=== PATIENT | male | born 1940 | race African-American/Black ===

== ENCOUNTER → 2020-07-08 | Outpatient (CLI) | payer OTHER ==
[~2020-07-08] MED LIST: METFORMIN
== END ==
LOC: SJCVCIMAG 07-06 06:25
PROVIDERS: ATTEND Podiatrist Foot & Ankle Surgery
DX: I70.203 Unspecified atherosclerosis of native arteries of extremities, bilateral legs (principal); E78.00 Pure hypercholesterolemia, unspecified; Z72.0 Tobacco use

== ENCOUNTER → 2020-07-19 | Outpatient (CLI) | payer OTHER ==
[~2020-07-19] MED LIST changes: +ASA81BEC PO; +CARVEDILOL12.5 MG PO; +FLOMAX0.4 MG PO; +FUROSEMIDE 40 M40 MG PO; +LANTUS SUBQ; +SIMVASTATIN80 MG PO; +VALSARTAN-HCTZ1 EACH PO
== END ==
LOC: SJCVC 14:43
PROVIDERS: ATTEND Nuclear Medicine Nuclear Cardiology
DX: I73.9 Peripheral vascular disease, unspecified (principal); I12.9 Hypertensive chronic kidney disease with stage 1 through stage 4 chronic kidney disease, or unspecified chronic kidney disease; E11.22 Type 2 diabetes mellitus with diabetic chronic kidney disease; E78.00 Pure hypercholesterolemia, unspecified; N18.9 Chronic kidney disease, unspecified; I44.7 Left bundle-branch block, unspecified; Z79.4 Long term (current) use of insulin; Z72.0 Tobacco use

== ENCOUNTER → 2020-07-22 | Outpatient (CLI) | payer OTHER ==
[~2020-07-22] VITALS: Ht 172.7 cm; Wt 52.2 kg
[2020-07-22 07:10] VITALS: BP 156/86
[2020-07-22 07:32] LABS: HEMATOCRIT 43.3 % (42.0-52.0); HEMOGLOBIN 13.6 gm/dL (14.0-18.0); MCH 28.5 pg (26.0-34.0); MCHC 31.3 g/dL (28.0-37.0); RBC 4.76 mil/uL (4.50-6.00); RDW 15.3 % (10.5-14.5)
[2020-07-22 07:40] LABS: CALCIUM 9.9 mg/dL (8.5-10.1); CREATININE 2.1 mg/dL (0.7-1.3)
[2020-07-22 07:41] LABS: POTASSIUM 5.5 mmol/L (3.5-5.1)
== END | disposition home or self-care (01) ==
LOC: CATH 06:41
PROVIDERS: ATTEND Nuclear Medicine Nuclear Cardiology
DX: I70.238 Atherosclerosis of native arteries of right leg with ulceration of other part of lower leg (principal); I70.213 Atherosclerosis of native arteries of extremities with intermittent claudication, bilateral legs; L97.919 Non-pressure chronic ulcer of unspecified part of right lower leg with unspecified severity; I70.1 Atherosclerosis of renal artery; I70.8 Atherosclerosis of other arteries; I12.9 Hypertensive chronic kidney disease with stage 1 through stage 4 chronic kidney disease, or unspecified chronic kidney disease; E11.22 Type 2 diabetes mellitus with diabetic chronic kidney disease; N18.9 Chronic kidney disease, unspecified; I25.10 Atherosclerotic heart disease of native coronary artery without angina pectoris; F17.210 Nicotine dependence, cigarettes, uncomplicated; E78.00 Pure hypercholesterolemia, unspecified; Z98.890 Other specified postprocedural states; Z79.899 Other long term (current) drug therapy; Z90.49 Acquired absence of other specified parts of digestive tract

== ENCOUNTER → 2020-09-05 | Outpatient (CLI) | payer OTHER | LOC: SJCVCIMAG 08:14 | PROVIDERS: ATTEND Nuclear Medicine Nuclear Cardiology | DX: I65.23 Occlusion and stenosis of bilateral carotid arteries (principal); I70.201 Unspecified atherosclerosis of native arteries of extremities, right leg; I77.9 Disorder of arteries and arterioles, unspecified; F17.200 Nicotine dependence, unspecified, uncomplicated; Z95.828 Presence of other vascular implants and grafts ==

== ENCOUNTER 2020-10-25 00:30 | Emergency (ER) | payer OTHER ==
[~2020-10-25] VITALS: Ht 175.3 cm; Wt 70.3 kg
[2020-10-25 00:58] LABS: ABSOLUTE NEUTROPHILS 6.5 thou/uL (1.4-8.2); BASOPHILS 0.3 % (0.0-2.0); EOSINOPHILS 0.6 % (0.0-3.0); HEMATOCRIT 45.1 % (42.0-52.0); HEMOGLOBIN 14.8 gm/dL (14.0-18.0); LYMPHOCYTES 18.6 % (24.0-44.0); MCH 29.4 pg (26.0-34.0); MCHC 32.9 g/dL (28.0-37.0); MCV 89.4 fL (80.0-100.0); MONOCYTES 12.1 % (1.0-8.0); PLATELET COUNT 470 thou/uL (150-400); POLYS 68.4 % (36.0-66.0); RBC 5.04 mil/uL (4.50-6.00); RDW 15.6 % (10.5-14.5); WBC 9.5 thou/uL (4.0-11.0)
[2020-10-25 01:02] LABS: CALCIUM 9.9 mg/dL (8.5-10.1); CREATININE 1.7 mg/dL (0.7-1.3); POTASSIUM 4.8 mmol/L (3.5-5.1)
[2020-10-25 01:08] LABS: ALBUMIN 3.9 g/dL (3.4-5.0); TOTAL BILIRUBIN 0.7 mg/dL (0.2-1.0); TOTAL PROTEIN 7.5 g/dL (6.4-8.2)
[2020-10-25 04:05] LABS: URINE BILIRUBIN NEGATIVE (Negative); URINE BLOOD NEGATIVE (Negative); URINE CLARITY CLEAR; URINE COLOR YELLOW; URINE GLUCOSE-RANDOM* TRACE (Negative); URINE KETONES NEGATIVE (Negative); URINE LEUKOCYTES-REFLEX NEGATIVE (Negative); URINE NITRITE-REFLEX NEGATIVE (Negative); URINE PROTEIN (DIPSTICK) NEGATIVE (Negative); URINE SPECIFIC GRAVITY 1.015 (1.005-1.035); URINE UROBILINOGEN 0.2 E.U./dl (0.2-1.0)
[2020-10-25 04:53] VITALS: BP 128/67
== END 2020-10-25 04:54 | disposition home or self-care (01) ==
LOC: ER 00:30
PROVIDERS: Emergency Medicine
DX: E16.2 Hypoglycemia, unspecified (principal); N17.9 Acute kidney failure, unspecified; I25.10 Atherosclerotic heart disease of native coronary artery without angina pectoris; I10 Essential (primary) hypertension; Z90.49 Acquired absence of other specified parts of digestive tract; Z98.61 Coronary angioplasty status; Z79.82 Long term (current) use of aspirin; Z79.899 Other long term (current) drug therapy; Z79.4 Long term (current) use of insulin

== ENCOUNTER → 2020-12-06 | Outpatient (CLI) | payer OTHER ==
[~2020-12-06] MED LIST changes: +SANTYL OINTMENT30 G1 TOP
== END ==
LOC: SJCVC 13:38
PROVIDERS: ATTEND Nuclear Medicine Nuclear Cardiology
DX: I73.9 Peripheral vascular disease, unspecified (principal); I77.9 Disorder of arteries and arterioles, unspecified; I10 Essential (primary) hypertension; E78.00 Pure hypercholesterolemia, unspecified; E11.9 Type 2 diabetes mellitus without complications; I13.0 Hypertensive heart and chronic kidney disease with heart failure and stage 1 through stage 4 chronic kidney disease, or unspecified chronic kidney disease; I50.9 Heart failure, unspecified; N18.9 Chronic kidney disease, unspecified; E78.5 Hyperlipidemia, unspecified; E78.2 Mixed hyperlipidemia; Z79.4 Long term (current) use of insulin; Z72.0 Tobacco use; Z85.46 Personal history of malignant neoplasm of prostate; Z87.891 Personal history of nicotine dependence; Z72.89 Other problems related to lifestyle; Z79.82 Long term (current) use of aspirin; Z79.899 Other long term (current) drug therapy

== ENCOUNTER → 2020-12-12 | Outpatient (CLI) | payer OTHER | LOC: LAB 12:34 | PROVIDERS: ATTEND Nuclear Medicine Nuclear Cardiology | DX: Z01.812 Encounter for preprocedural laboratory examination (principal); Z20.822 Contact with and (suspected) exposure to COVID-19 ==

== ENCOUNTER 2020-12-15 09:43 | Observation (INO) | payer OTHER ==
[~2020-12-15] VITALS: Ht 172.7 cm; Wt 45.4 kg
[2020-12-15] VITALS (10 sets, daily range): BP systolic 115–171; BP diastolic 65–90
--- NOTE | ~2020-12-15 | TEE ---
[facility] [place] [address] TRANSESOPHAGEAL ECHOCARDIOGRAM Name: KEITH NAYAK Room #: 211-P [facility] Debra M.R.#: [id number] Admission: 12/15/20 Attend Phys: Dylan Andrews MD Discharge: 12/16/20 Date of : 40 Report #: [id number] THIS REPORT FOR: cc: Jose Antonio Crain MD, Douglas James MD Santiago, Patrick MD [facility] ~ APPROVED REPORT Study performed: 12/16/2020 09:17:49 EXAM: Comprehensive 2D, Doppler, and color-flow Echocardiogram Patient Location: Bedside Room #: 211 Status: routine BSA: 1.52 HR: 83 bpm BP: 121/68 mmHg Rhythm: RBBB Other Information Study Quality: Adequate/uncopperative patient. Not all measurements taken. Indications VTACH. Hx: CAD, Cardiomopathy. 2D Dimensions IVSd: 13.56 (7-11mm) LVOT Diam: 20.31 (18-24mm) LVDd: 46.69 mm PWd: 12.92 (7-11mm) LVDs: 41.44 (25-40mm) Aortic Root: 27.17 mm Aortic Valve AoV Peak Med.: 1.24 m/s AO Peak Gr.: 6.16 mmHg Tricuspid Valve RAP Estimate: 10.00 mmHg Left Ventricle The left ventricle is normal size. Mild concentric left ventricular hypertrophy. Left ventricular systolic function is severely [facility] [address] [place] [address] TRANSESOPHAGEAL ECHOCARDIOGRAM Name: KEITH NAYAK Room #: 211-P [facility] IN .R.#: [id number] Admission: 12/15/20 Attend Phys: Dylan Andrews, Discharge: 12/16/20 Date of : 40 Report #: [id number] decreased. LVEF is 25%. This study is not technically sufficient to allow evaluation of the LV diastolic function. Right Ventricle The right ventricle is normal size. The right ventricular systolic function is normal. Atria The left atrium size is normal. The right atrium size is normal. Aortic Valve The aortic valve is normal in structure. Trace aortic regurgitation. There is no aortic valvular stenosis. Mitral Valve The mitral valve is normal in structure. Mild mitral regurgitation. No evidence of mitral valve stenosis. Tricuspid Valve The tricuspid valve is normal in structure. There is no tricuspid valve regurgitation noted. Unable to assess PA pressure. Pulmonic Valve The pulmonary valve is normal in structure. There is no pulmonic valvular regurgitation. Great Vessels The aortic root is normal in size. IVC is normal in size and collapses <50% with inspiration. Pericardium Small pericardial effusion. <Conclusion> Normal left ventricular size with mild-moderate concentric hypertrophy Ejection fraction 25%, global hypokineses and severe anteroseptal hypokinesis Normal right ventricle size/function Normal atrial size Normal aortic valve structure/function Mild mitral valve insufficiency [facility] [address] [place] [address] TRANSESOPHAGEAL ECHOCARDIOGRAM Name: NAELKEITH L Room #: 211-P [facility] IN .R.#: [id number] Admission: 12/15/20 Attend Phys: Dylan Andrews, Discharge: 12/16/20 Date of : 40 Report #: [id number] Normal IVC size/response to respiration Small pericardial effusion, no tamponade physiology. By: [id number] Ubaldo Ho MD, FACC /INF
[2020-12-15 10:30] LABS: HEMATOCRIT 48.6 % (42.0-52.0); HEMOGLOBIN 15.6 gm/dL (14.0-18.0); MCH 28.5 pg (26.0-34.0); MCHC 32.1 g/dL (28.0-37.0); MCV 88.7 fL (80.0-100.0); RBC 5.48 mil/uL (4.50-6.00); RDW 15.4 % (10.5-14.5); WBC 10.2 thou/uL (4.0-11.0)
[2020-12-15 10:37] LABS: CALCIUM 9.9 mg/dL (8.5-10.1); CREATININE 1.9 mg/dL (0.7-1.3)
[2020-12-15] MEDS ORDERED: ENTRESTO 49 MG1 EACH PO (10:44)
[2020-12-15] MEDS ORDERED: ZOCOR 10 MG TAB10 M1 PO (10:45)
[2020-12-15] MEDS ORDERED: FLOMAX0.4 MG PO (10:46)
--- NOTE | 2020-12-16 01:47 | NUR ---
ASSESSMENT: PT REMAIN ALERT AND ORIENT TIMES THREE, FORGETFUL AT TIMES TO SITUATION. TOMMY () WAS AT THE BEDSIDE AT SHIFT CHANGE. PT WAS TO DC HOME TONIGHT AT 2100 PRIOR TO HAVING 18 BTS OF V-TACH PER MONITOR. LEILA BUENO D. WAS NOTIFIED OF THE ARRHYTHIMA. ORDERS GIVEN. PT WILL REMAIN OVERNIGHT UNTIL TOMORROW. PT WILL HAVE AN ECHO DOPPLER TOMORROW AND CONSULT WITH CARDIOLOGY. WILL RETURN IN THE AM. VSS, AFEBRILE. RIGHT GROIN SITE, ABSENT OF HEMATOMA, OOZING AND BRUISING. DRESSING C/D/I. PIC TAKEN OF RIGHT GREAT TOE INDICATING THE UNHEALING STAGE OF AN ULCER ON THE TIP OF THE GREAT TOE. IVF NOW DC'D PER ORDER. SR-SB PER MONITOR. DENY PAIN, SOB AND N/V. WILL CONTINUE TO MONITOR.
[2020-12-16 03:23] VITALS: BP 121/68
[2020-12-16 03:45] LABS: HEMATOCRIT 37.1 % (42.0-52.0); MCH 28.1 pg (26.0-34.0); MCHC 31.6 g/dL (28.0-37.0); MCV 88.9 fL (80.0-100.0); RBC 4.17 mil/uL (4.50-6.00); RDW 15.4 % (10.5-14.5); WBC 10.9 thou/uL (4.0-11.0)
[2020-12-16 03:46] LABS: HEMOGLOBIN 11.7 gm/dL (14.0-18.0)
[2020-12-16 04:02] LABS: ALBUMIN 2.8 g/dL (3.4-5.0); CALCIUM 8.5 mg/dL (8.5-10.1); CREATININE 1.6 mg/dL (0.7-1.3); TOTAL BILIRUBIN 0.7 mg/dL (0.2-1.0); TOTAL PROTEIN 5.8 g/dL (6.4-8.2)
[2020-12-16 04:40] LABS: POTASSIUM 5.2 mmol/L (3.5-5.1)
[2020-12-16 07:15] VITALS: BP 119/69
--- NOTE | 2020-12-16 09:00 | NUR ---
ASSUMMED CARE OF THIS PATIENT FROM THE NIGHT NURSE AT 0700. PATIENT IS ANXIOUS AND [employer] [place]. PLAN OF CARE EXPLAINED REASSURANCE GIVEN. BEDSIDE ECHO IN PROGRESS.
--- NOTE | 2020-12-16 10:35 | NUR ---
PATIENT TO NUCLEAR MED FOR STRESS TEST VIA W/C. PATIENT'S AT THE BEDSIDE AND REMAINS THERE.
[2020-12-16] MEDS ORDERED: PACERONE200 MG PO (13:09)
[2020-12-16] MEDS ORDERED: CLOPIDOGREL75 MG PO (13:09)
--- NOTE | 2020-12-16 13:15 | NUR ---
DR NGUYỄN IN TO SEE PATIENT AND HIS CONCERNING CARDIAC ECHO AND NUCLEAR STRESS TEST RESULTS. PATIENT AND ARE VERY ANXIOUS CONCERNING THE PLAN OF CARE FOR THE PATIENT'S RIGHT TOE AND BLOOD FLOW TO THE FOOT. JOSE M TELEVISION ENGINEERING TEACHER WITH DR DEE NOTIFIED OF THEIR CONCERNS.
[2020-12-16 13:50] VITALS: BP 119/69
--- NOTE | 2020-12-16 14:00 | NUR ---
[id number] JOSE M CALLED AND SPOKE TO THE CONCERNING THE PLAN OF CARE. PATIENT AND ARE ANXIOUS TO LEAVE.
--- NOTE | 2020-12-16 14:10 | NUR ---
PATIENT DISCHARGED TO HOME WITH VIA W/C. DISCHARGE INSTURCTIONS REVIEWED WITH AND PATIENT. ALSO REVIEWED MEDICATIONS AND STATED THAT THEY ARE TO F/U WITH THE [employer]. VERBALIZED UNDERSTANDING.
--- NOTE | 2020-12-20 14:37 | 2DMMODE ---
[facility] [place] [address] [place] [address] 2 D/M-MODE ECHOCARDIOGRAM Name: KEITH NAYAK Room #: 211-P [facility] M.R.#: [id number] Admission: 12/15/20 Attend Phys: Lupe Dee MD Discharge: 12/16/20 Date of : 40 Report #: [id number] THIS REPORT FOR: cc: Jose Antonio Crain MD, Douglas James MD Santiago, Patrick MD [facility] Lupe Dee MD ~ Sex/Age : M/80Y Height/Weight : 172.7cm/45.4kg Patient Name : KEITH NAYAK Study Date : 2020-12-16 BSA : 1.52? Requesting Name : ECHO STANDARD W/O CONTRAST Date of : 1940 Request Doctor : LUPE DEE Department : CARD --< Approved Report > Study performed: 12/16/2020 09:17:49 EXAM: Comprehensive 2D, Doppler, and color-flow Echocardiogram Patient Location: Bedside Room #: 211 Status: routine BSA: 1.52 HR: 83 bpm BP: 121/68 mmHg Rhythm: RBBB Other Information Study Quality: Adequate/uncopperative patient. Not all measurements taken. Indications VTACH. Hx: CAD, Cardiomopathy. 2D Dimensions IVSd: 13.56 (7~11mm) LVOT Diam: 20.31 (18~24mm) LVDd: 46.69 mm PWd: 12.92 (7~11mm) LVDs: 41.44 (25~40mm) Aortic Root: 27.17 mm Aortic Valve AoV Peak Med.: 1.24 m/s [facility] [address] [place] [address] 2 D/M-MODE ECHOCARDIOGRAM Name: KEITH NAYAK Trung Room #: [facility]#: [id number] Admission: 12/15/20 Attend Phys: Lupe Dee, Discharge: 12/16/20 Date of : 40 Report #: [id number] AO Peak Gr.: 6.16 mmHg Tricuspid Valve RAP Estimate: 10.00 mmHg Left Ventricle The left ventricle is normal size. Mild concentric left ventricular hypertrophy. Left ventricular systolic function is severely decreased. LVEF is 25%. This study is not technically sufficient to allow evaluation of the LV diastolic function. Right Ventricle The right ventricle is normal size. The right ventricular systolic function is normal. Atria The left atrium size is normal. The right atrium size is normal. Aortic Valve The aortic valve is normal in structure. Trace aortic regurgitation. There is no aortic valvular stenosis. Mitral Valve The mitral valve is normal in structure. Mild mitral regurgitation. No evidence of mitral valve stenosis. Tricuspid Valve The tricuspid valve is normal in structure. There is no tricuspid valve regurgitation noted. Unable to assess PA pressure. Pulmonic Valve The pulmonary valve is normal in structure. There is no pulmonic valvular regurgitation. Great Vessels The aortic root is normal in size. IVC is normal in size and collapses <50% with inspiration. Pericardium Small pericardial effusion. <Conclusion> Normal left ventricular size with mild-moderate concentric hypertrophy Ejection fraction 25%, global hypokineses and severe anteroseptal hypokinesis Normal right ventricle size/function Normal atrial size [facility] [address] [place] [address] 2 D/M-MODE ECHOCARDIOGRAM Name: NAELKEITH L Room #: 211-[facility].#: [id number] Admission: 12/15/20 Attend Phys: Lupe Dee, Discharge: 12/16/20 Date of : 40 Report #: [id number] Normal aortic valve structure/function Mild mitral valve insufficiency Normal IVC size/response to respiration Small pericardial effusion, no tamponade physiology. Electronically Approved : 12/20/2020 14:35:37 By: [id number] Ubaldo Ho MD, FACC /JW
== END 2020-12-16 14:45 | disposition home or self-care (01) ==
LOC: CATH 09:43 → 2N 15:26 → CATH 15:37 → 2N 12-16 14:45
PROVIDERS: ADMIT Nuclear Medicine Nuclear Cardiology; ATTEND Nuclear Medicine Nuclear Cardiology
DX: I70.201 Unspecified atherosclerosis of native arteries of extremities, right leg (principal); I25.10 Atherosclerotic heart disease of native coronary artery without angina pectoris; L97.919 Non-pressure chronic ulcer of unspecified part of right lower leg with unspecified severity; I70.1 Atherosclerosis of renal artery; I10 Essential (primary) hypertension; I47.2 Ventricular tachycardia; I42.8 Other cardiomyopathies; J44.9 Chronic obstructive pulmonary disease, unspecified; I12.9 Hypertensive chronic kidney disease with stage 1 through stage 4 chronic kidney disease, or unspecified chronic kidney disease; E11.22 Type 2 diabetes mellitus with diabetic chronic kidney disease; N18.9 Chronic kidney disease, unspecified; E78.00 Pure hypercholesterolemia, unspecified; Z79.899 Other long term (current) drug therapy; Z79.01 Long term (current) use of anticoagulants; Z79.82 Long term (current) use of aspirin; Z85.46 Personal history of malignant neoplasm of prostate
CPT/HCPCS: 62110; 62900; 70005